=== PATIENT | male | born 1980 | race Two or more races ===

== ENCOUNTER 2016-09-24 10:39 | Emergency (ER) | payer SELFPAY ==
[~2016-09-24] VITALS: Ht 167.6 cm; Wt 74.8 kg
[2016-09-24 10:47] VITALS: BP 125/72
[2016-09-24] MEDS ORDERED: NKM (10:50)
[2016-09-24] MEDS ORDERED: KEFLEX500 MG ORAL (10:58)
[2016-09-24] MEDS ORDERED: BACTRIM DS TAB1 EAC1 ORAL (10:58)
[2016-09-24] MEDS ORDERED: SILVADENE20 GM TP (10:58)
[2016-09-24 11:20] VITALS: BP 118/74
--- NOTE | 2016-09-24 15:11 | Emergency Room Report ---
History of Present Illness General Chief Complaint: General Complaint Source: Patient Present Illness HPI Patient presents emergency department today complaining of left great toe pain and ulceration. Patient has had pain in his toe for about a week with some evidence also a she and an infection. He denies any trauma. States that he is up-to-date on his tetanus shot. Denies any diabetes high blood pressure heart attack or stroke. Symptoms noted moderate. No other modifying factors. No other associated signs and symptoms. No other complaints were noted. Allergies: Coded Allergies: No Known Allergies (Unverified , 09/24/16) Patient History Past Medical History: none Past Surgical History: none Pertinent Family History: none Social History: Denies: alcohol use, drug use, smoking Reviewed Nursing Documentation: PMH: Agreed, PSxH: Agreed Nursing Documentation-PMH Past Medical History: No Stated History Review of Systems All Other Systems: negative except mentioned in HPI Physical Exam Vital Signs Date Time Temp Pulse Resp B/P Pulse Ox O2 Delivery O2 Flow Rate FiO2 09/24/16 10:47 98.4 94 18 125/72 99 Room Air Sp02 EP Interpretation: reviewed, normal General Appearance: normal inspection, well appearing, no apparent distress, alert Head: atraumatic Eyes: bilateral eye normal inspection ENT: normal ENT inspection, hearing grossly normal, normal voice Neck: normal inspection, full range of motion, supple, no bony tend Respiratory: normal inspection, lungs clear, normal breath sounds, no respiratory distress, no retraction, no wheezing Cardiovascular #1: regular rate, rhythm, no edema Gastrointestinal: normal inspection, normal bowel sounds, non tender, soft, no guarding, no hernia Genitourinary: no CVA tenderness Musculoskeletal: back normal, swelling - left great toe Neurologic: normal inspection, alert, responsive, speech normal Psychiatric: normal inspection, judgement/insight normal, mood/affect normal Skin: normal inspection, normal color, no rash Medical Decision Making Diagnostic Impression: Primary Impression: Toe infection ER Course Patient presents emergency department today complaining of left toe pain. Differential considerations include abscess, cellulitis, ingrown toenail just name a few. Patient's exam consistent with mild cellulitis and ulceration the left toe. Patient is advised to apply Silvadene as well as take oral antibiotics. Recommend outpatient followup.Patient is advised to follow up with primary doctor in 2-3 days and return the emergency room for any worsening symptoms and as needed. Last Vital Signs Date Time Temp Pulse Resp B/P Pulse Ox O2 Delivery O2 Flow Rate FiO2 09/24/16 10:47 98.4 94 18 125/72 99 Room Air Status: improved Disposition: HOME, SELF-CARE Condition: Stable Scripts Trimethoprim/Sulfamethoxazole 160/800* (BACTRIM DS TABLET*) 1 Each Tablet 1 TAB ORAL Q12H, #14 TAB 0 Refills Prov: ELIZABETH GILBERT M.D. 09/24/16 Cephalexin* (KEFLEX*) 500 Mg Capsule 500 MG ORAL Q6H, #28 CAP 0 Refills Prov: ELIZABETH GILBERT M.D. 09/24/16 Silver Sulfadiazine (SILVADENE) 20 Gm Cream..g. 20 GM TP BID for 14 Days, GM Prov: ELIZABETH GILBERT M.D. 09/24/16 Referrals: NOT CHOSEN IPA/,REFERRING (PCP) Patient Instructions: Cellulitis, Wound Care ELIZABETH GILBERT M.D. Sep 24, 2016 15:11
== END 2016-09-24 11:20 | disposition home or self-care (01) ==
LOC: EMR 11:10
DX: L08.9 Local infection of the skin and subcutaneous tissue, unspecified (principal)
CPT/HCPCS: 99284